=== PATIENT | female | born 1970 | race Caucasian/White ===

== ENCOUNTER 2021-11-24 09:20 | Outpatient (CLI) | payer OTHER, SELFPAY ==
--- NOTE | ~2021-11-24 | MM_ITS ---
EXAMINATION: MM screening [facility] BI w meenu HISTORY: Screening mammogram TECHNIQUE: Craniocaudal and mediolateral oblique 3-D tomosynthesis images were obtained and synthetic 2-D images were generated. CAD analysis was submitted and interpreted. COMPARISON: 03/13/2014, 02/06/2014, 06/07/2012 BREAST PARENCHYMAL COMPOSITION: There are scattered areas of fibroglandular density. FINDINGS: There is no suspicious mass, calcification, or architectural distortion to suggest malignan cy in either breast. There has been no suspicious interval change. IMPRESSION: 1. No mammographic evidence of malignancy. 2. Recommend routine screening mammography in one year. BI-RADS Category 1: Negative Reviewed, dictated and finalized at location A.
== END 2021-11-24 09:21 | disposition home or self-care (01) ==
LOC: ANHIMG 09:22
PROVIDERS: Visit Provider Nurse Practitioner
DX: Z12.31 Encounter for screening mammogram for malignant neoplasm of breast (principal)
CPT/HCPCS: 77063; 77067

== ENCOUNTER 2023-02-10 13:55 | Emergency (ER) | payer OTHER, SELFPAY ==
--- NOTE | ~2023-02-10 | XR_ITS ---
EXAMINATION: XR ankle LT min 3V DATE: 02/10/2023 14:40 INDICATION: Left ankle pain TECHNIQUE: Anteroposterior, lateral, mortise, and additional oblique view of the ankle were obtained. COMPARISON: None. FINDINGS: There is a triangular heterotopic ossification projecting distal to the medial malleolus. T here is medial soft tissue swelling of ankle. The ankle mortise is intact. Posterior and plantar calc aneal enthesophytes are noted. IMPRESSION: 1. Findings suggestive of tiny avulsion fracture of the medial malleolus. Reviewed, dictated and finalized at location A.
[2023-02-10 14:07] VITALS: BP 139/74; PULSE 82; RESP 16; TEMP 37.4; O2SAT 98
--- NOTE | 2023-02-10 14:40 | ED.EXTPRO ---
HPI - Extremity Problem General Chief complaint: Extremity Injury, Lower Stated complaint: Left Ankle/Foot Pain Time Seen by Provider: 02/10/23 14:16 Source: patient and RN notes reviewed Mode of arrival: ambulatory Limitations: no limitations History of Present Illness HPI Narrative: Patient presents today complaining ankle 10 days. Denies injury or trauma. Worse in the mornings and when she tries to walk up stairs. Denies numbness or tingling in the leg or. She has tried naproxen a few times without much relief. Patient has an appointment with her surgical device sales representative next, states they do not do x-rays in that office and she believes she may need some. Related Data Home Medications Medication Instructions Recorded Confirmed No Home Medications 02/10/23 02/10/23 Allergies Allergy/AdvReac Type Severity Reaction Status Date / Time No Known Allergies Allergy Unverified 02/10/23 14:09 Review of Systems Review of Systems: CONSTITUTIONAL: Denies body aches, fever, chills, or sweats. EYES: Denies visual changes, redness, or discharge. ENT: Denies rhinorrhea, congestion, sore throat, or otalgia. CARDIOVASCULAR: Denies chest pain, palpitations, or edema. RESPIRATORY: Denies cough or dyspnea. GASTROINTESTINAL: Denies abdominal pain, nausea, vomiting, or diarrhea. GENITOURINARY: Denies dysuria or hematuria. SKIN: Denies rash, itching, or wounds. MUSCULOSKELETAL: Denies back pain, or myalgia.+ left ankle pain NEUROLOGIC: Denies headache, numbness, tingling, or weakness. PSYCH: Denies depression or anxiety. PMFSH Comments At time of signature, I have reviewed and agree with nursing past medical, surgical, social and family history unless otherwise noted. Please see nursing chart for further information. There is no relevant family history pertinent to the presenting complaint Exam Narrative: GENERAL: Well-appearing, well-nourished, and in no acute distress. HEAD: Normocephalic, atraumatic. EYES: EOMI. No redness or drainage. Conjunctivae normal. ENT: Mucous membranes pink and moist. NECK: Normal AROM. CHEST: No respiratory distress. EXTREMITIES: Left ankle: Tenderness to soft tissue of the medial ankle extending to the medial heel. No tenderness to remainder of the foot. No ecchymosis or erythema noted. There is a scant amount of edema to the medial ankle. Distal sensation intact. Capillary refill normal. Pedal pulse normal. Full range of motion of the ankle. Patient states increased pain with internal rotation. SKIN: Warm, dry, no rash. Capillary refill normal. Normal skin turgor. NEURO: No focal deficits. Alert and oriented x3. Gait steady. PSYCH: Normal affect. No signs of depression or anxiety. Course Course Level of Care: Express Care Visit Vital Signs Vital signs: Vital Signs Temperature 99.3 F 02/10/23 14:07 Pulse Rate 82 02/10/23 14:07 Respiratory Rate 16 02/10/23 14:07 Blood Pressure 139/74 02/10/23 14:07 Pulse Oximetry 98 02/10/23 14:07 Oxygen Delivery Room Air 02/10/23 14:07 Temperature 99.3 F 02/10/23 14:07 Pulse Rate 82 02/10/23 14:07 Respiratory Rate 16 02/10/23 14:07 Blood Pressure 139/74 02/10/23 14:07 Pulse Oximetry 98 02/10/23 14:07 Oxygen Delivery Room Air 02/10/23 14:07 Reviewed. Pt has been instructed to follow up with her PCP regarding her elevated blood pressure today. MDM - Extremity (Nontraumatic) MDM Narrative Medical decision making narrative: X-ray suggestive of tiny avulsion fracture. Wil wrap applied. No prescription medications indicated at this time. Anticipatory guidance given. Differential Diagnosis Differential diagnosis: Likely lower extremity edema and other (Ankle sprain, tarsal tunnel syndrome, osteoarthritis) Imaging Data Radiologist's impression: ITS Impressions Ankle X-Ray 02/10/23 14:42 IMPRESSION: 1. Findings suggestive of tiny avulsion fracture of the medial malleolus.
== END 2023-02-10 15:20 | disposition home or self-care (01) ==
PROVIDERS: Emergency Provider Nurse Practitioner; PCP Nurse Practitioner
DX: S82.892A Other fracture of left lower leg, initial encounter for closed fracture (principal); T14.90XA Injury, unspecified, initial encounter
CPT/HCPCS: 73610; 99214; G0463

== ENCOUNTER 2025-08-01 10:53 | Outpatient (CLI) | payer OTHER, SELFPAY ==
[2025-08-01 11:27] LABS: Hematocrit 37.5 % (37.0-47.0); Hemoglobin 12.6 g/dL (12.0-15.0)
== END 2025-08-01 10:54 | disposition home or self-care (01) ==
LOC: ANHLAB 10:54
PROVIDERS: PCP Nurse Practitioner; Visit Provider Student in an Organized Health Care Education/Training Program
DX: N92.0 Excessive and frequent menstruation with regular cycle (principal); Z01.818 Encounter for other preprocedural examination
CPT/HCPCS: 36415; 85014; 85018

== ENCOUNTER 2025-08-05 02:14 | Day surgery (SDC) | payer OTHER, SELFPAY ==
--- NOTE | 2025-08-01 09:57 | PC.NURSE ---
[facility] has started construction of its new state of the art ER which will open Spring 2026. With this, we anticipate parking may be a challenge for some our surgical patients and families. Parking spaces are limited but are available for all Surgical, obstetrics, and ER patients sharing this lot. If you arrive and find you are having a hard time finding a parking space, please note that we understand the challenges, please drive around the hospital and park near Hospital Entrance 1. When you enter this entrance, you can ask a volunteer to direct or take you back to the surgical waiting area to check in. We appreciate everyone?s understanding of these expected challenges while we build for your future. Report to the Outpatient Waiting Room, entrance under the green pavilion located off [address], at time 1130_ on date 08/05/25_. Planned Procedure Time: 1330.? Time changes happen often and if your time is changed the preop area will call you the afternoon before. - You and your visitor will be asked to self-screen and do not enter if you have any COVID symptoms. Please call surgeon if you need to reschedule. - A mask is optional within the hospital at this time. Patients may have clear liquids (water, carbonated beverages, clear teas, apple juice) until 3 hours prior to surgery with a maximum of 20 ounces. - No food from midnight until time of surgery and no smoking, or chewing tobacco (or any form of nicotine). No chewing gum, candy or mints. Take only the following medications with a SIP of water on the morning of surgery: NONE DO NOT STOP ANY OF YOUR OTHER PRESCRIPTION MEDICATIONS PRIOR TO SURGERY EXCEPT THE FOLLOWING Hold all vitamins and supplements for 3 days per anesthesiologist. Medications to discontinue per physician Date to take last dose Please no make-up, nail serbian, hairspray, perfume, deodorant, or body powder the day of surgery.? No jewelry (including any body piercings) or valuables the day of surgery, leave them at home.? Please take a shower or bath the night before, or the morning of, surgery with an antibacterial soap.? Wear comfortable, loose fitting clothing.? Children are encouraged to wear pajamas. - Jewelry must be removed prior to entering the operating room.? Rings and piercings that are not removed may be cut off. - The hospital will not accept responsibility for valuables.? - Please leave all valuables, including medications, at home the day of surgery. If you are going home after surgery, a licensed coach tour driver must drive you home.? - NO public transportation without another adult if you receive anesthesia. - We recommend that an adult stay with you for 24 hours following discharge. - We also recommend that you do not drive, make important decision, drink alcoholic beverages, or take any drugs that were not prescribed by your health care provider for at least 24 hours after your discharge time. For Pediatric surgeries, we recommend two adults accompany the child home. Follow any additional instructions given to you from your surgeon. Telephone instructions given to __PATIENT_and asked if any additional questions and then verbalized understanding. Patient advised to call surgeon office or pre surgery nurse liaison [phone] if any additional questions.
[2025-08-05] VITALS (7 sets, daily range): BP systolic 134–154; BP diastolic 63–87; PULSE 57–86; RESP 13–18; TEMP 36.6; O2SAT 98–100; BMI 39.2
--- OUTSIDE RECORDS SUMMARY | 2025-08-05 02:17 | XMS_ITS | Encounter Summary ---
Author Organization [facility] Address [address] [place] [address] Care Team Providers Care Urban Design Consultant Name Role Phone Susy Zapata NP Primary Care Provider [phone] Encounter Details Date Type Department Care Team (Late st Contact Info) Description 11/25/2021 MyChart Message Enc [facility] Family Medicine - [place] [address] [facility] [address] [place] [address] [phone] Susy Zapata, FAY [address], [place] [id number] mammogram Social History Tobacco Use Types Packs/Day Years Used Date Smoking Tobacco: Never Smokeless Tobacco: Never PHQ-2 Answer Date Recorded PHQ-2 Score - If the patient scores above 3, please move on to questions 3-9 1 10/08/2021 Comments No Sex and Gender Information Value Date Recorded Sex Assigned at Not on file Legal Sex Female 2:24 PM ASSISTED LIVING ASSISTANT Gender Identity Female 11/09/2021 8:03 AM CDT Sexual Orientation Straight 11/09/2021 8: 03 AM CDT COVID-19 Exposure Response Date Recorded In the last 10 days, have yo u been in contact with someone who was confirmed or suspected to have Coronavirus/COVID-19? No / Unsure 11/09/2021 11:02 PM CDT documented as of this encounter Plan of Treatment Not on file documented as of this encounter Visit Diagnoses Not on filedocumented in this encounter Additional Health Concerns Assessment Noted Time PHQ-9 Depression Total Score: 9 10/08/19 9:34 AM ASSISTED LIVING ASSISTANT documented as of this encounter Care Teams Urban Design Consultant Relationship Specialty Start Date End Date Susy Zapata NP [address] [place] [address] PCP - General NURSE PRACTITIONER 09/03/21 documented as of this encounter
--- OUTSIDE RECORDS SUMMARY | 2025-08-05 02:17 | XMS_ITS | Encounter Summary ---
Author Organization [facility] Address [address] [place] [address] Care Team Providers Care Membership Secretary Name Role Phone Susy Zapata NP Primary Care Provider [phone] Encounter Details Date Type Department Care Team (Late st Contact Info) Description 07/05/2023 MyCPlivot Message Enc [facility] Family Medicine - [place] [address] [facility] [address] [place] [address] [phone] Susy Zapata, FAY [address] [place], [place] [id number] MPV Social History Tobacco Use Types Packs/Day Years Used Date Smoking Tobacco: Never Smokeless Tobacco: Never PHQ-2 Answer Date Recorded Patient Health Questionnaire-2 Score 0 06/14/2023 Comments No Sex and Gender Information Value Date Recorded Sex Assigned at Not on file Legal Sex Female 2:24 PM COATER HELPER Gender Identity Female 11/09/2021 8:03 AM CDT Sexual Orientation Straight 11/09/2021 8: 03 AM CDT documented as of this encounter Plan of Treatment Not on file documented as of this encounter Visit Diagnoses Not on filedocumented in this encounter Additional Health Concerns Assessment Noted Time PHQ-9 Depression Total Score: 5 06/14/20 23 10:25 AM CDT documented as of this encounter Care Teams Membership Secretary Relationship Specialty Start Date End Date Susy Zapata NP [address] [place] [address] [place] [address] PCP - General NURSE PRACTITIONER 09/03/21 documented as of this encounter
--- OUTSIDE RECORDS SUMMARY | 2025-08-05 02:17 | XMS_ITS | Clinical Summary ---
Author Organization [facility] Address [address] [place] [address] Care Team Providers Care Window Tinter Name Role Phone Susy Zapata SOLAR FABRICATION TECHNICIAN Primary Care Provider [phone] Allergies Active Allergy Reactions Criticality Noted Date Comments Hemp Seed Oil Rash Low 06/14/2023 Medications buPROPion XL (WELLBUTRIN XL) 150 MG 24 hr tabletIndicatio ns:Obesity (BMI 30-39.9) Take 1 tablet (150 mg total) by mouth daily. 90 tablet 05/01/2025 Active naltrexone (DEPADE) 50 MG tabletIndicatio ns:Obesity (BMI 30-39.9) Take 0.5 tablets (25 mg total) by mouth daily. 90 tablet 05/01/2025 Active Active Problems Problem Noted Date Diagnosed Date Restless leg syndrome 05/01/2025 Overview (05/01/2025): Notes RLS symptoms at night or when she is sitting still. Denies any pain in her legs currently. Her symptoms are not keeping her up at night. Denies any known AURELIO. Assessment & Plan (05/01/2025 11:31 AM CDT): Will check iron levels. Symptoms are not keeping her up at night. Encourage regular exercise during the day to help reduce RLS symptoms, encouraged good sleep hygiene. Avoid caffeine and alcohol before bed. Can try heat or cold therapy to the legs and also massage. Varicose veins of bilateral lower extremities with other complications 06/14/2023 Overview (05/01/2025): Following with Dr. Barrios Assessment & Plan (05/01/2025 11:33 AM CDT): Continue to follow up with Dr. Barrios as directed. Obesity (BMI 30-39.9) 06/14/2023 Overview (05/01/2025): Is interested in medication to suppress appetite. Her diet is high in carbs and she does report that she snacks often. BMI is currently 39.54. Assessment & Plan (05/01/2025 11:37 AM CDT): Chronic condition with new medications started. With shared decision making we will begin Wellbutrin with naltrexone to make Contrave. Discussed with patient to take and side effects. Encourage following a low fat, low carb diet, encorperate whole foods such as fresh fruits and vegetables and whole grains into your diet, encourage 5 small meals per day. Avoid sugar-sweetened beverages, added sugars, processed meats, refined grains and oils or other processed foods. Encourage to get at least 150 minutes of moderate aerobic activity or 75 minutes of vigorous aerobic activity a week, or a combination of moderate and vigorous activity. Recommend consuming half body weight of protein per day. Increasing water in diet, Work on limited processed food, sugar, and limit carbohydrates. Increase fresh fruit and whole fresh vegetables in diet. Recommend an online foot tracker. Resolved Problems Problem Noted Date Diagnosed Date Resolved Date Anxiety and depression 10/10/202106/14 Encounters Date Type Department Care Team Description 06/18/2025 Scan HEALTH INFO SRVCS Scanned, Doc Med Group Ultrasound (SCAN) 05/20/2025 8:20 AM CDT Allied Health/Nurse Visit [facility] Family Medicine - [place] [address] [place] [address] Susy Zapata NP Lab Draw (/) 05/20/2025 Travel 05/17/2025 Results Follow-Up [facility] Family Medicine - [place] [address] [place] [address] Susy Zapata NP COLOGUARD (Vitrue SCIENCE), FERRITIN, IRON SAT PANEL (IRON,IBC,%SAT), Additional followed-up results: 5 from Last 3 Months Immunizations Immunization Administration Dates Next Due Hepatitis B (Generic: Adult) 10/05/2018,05/02/20 18,03/28/2018 [employer] ([place]) COVID-19 AD26 VACCINE 0.5 ML IM SUSP 12/03/2020 Tdap (Generic) 03/28/2018 Family History Medical History Relation Comments Diabetes Maternal Grandfather Heart Disease Maternal Grandfather Cancer Maternal Grandmother Arthritis Mother Diabetes Mother Hypertension Mother Heart Disease Paternal Aunt Mental Health Son schizophrenia Son Relation Status Comments Maternal Grandfather Maternal Grandmother Mother Paternal Aunt Son Social History Tobacco Use Types Packs/Day Years Used Date Smoking Tobacco: Never Smokeless Tobacco: Never Tobacco Cessation:Counseling Given: No Alcohol Use Standard Drinks/Week Comments Yes 1.7 (1 standard drink = 0.6 oz p ure alcohol) Once a month PHQ-2 Answer Date Recorded Patient Health Questionnaire-2 Score 0 09/12/2024 Comments No Sex and Gender Information Value Date Recorded Sex Assigned at Not on file 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 Gender Identity Female 11/09/2021 8:03 AM CDT Sexual Orientation Straight 11/09/2021 8: 03 AM CDT Last Filed Vital Signs Vital Sign Reading Time Taken Comments Blood Pressure 124/72 05/01/2025 10:45 AM CDT Pulse 79 05/01/2025 10:45 AM CDT Temperature 36.3 C (97.3 F) 05/01/2025 10:45 AM CDT Respiratory Rate 18 05/01/2025 10:4 5 AM CDT Oxygen Saturation 98% 05/01/2025 10: 45 AM CDT Inhaled Oxygen Concentration - - Weight 107.8 kg (237 lb 9.6 oz) 025 10:45 AM CDT Height 165.1 cm (5' 5) 05/01/2025 10:4 5 AM CDT Body Mass Index 39.54 05/01/2025 10:45 AM CDT Plan of Treatment Health Maintenance Due Date Last Done Comments Cervical Cancer Screening Pap Smear (Age 30 to 64) Every 3 Years 1971 Cervical Cancer Screening Pap with HPV Testing (Age 30 to 64) Every 5 Years 12/14/2001 Pneumococcal Vaccine: 50+ Years (1 of 1 - PCV) 12/14/2021 Mammogram Screening 11/25/2023 11/24/2021, 8 COVID-19 Vaccine (3 - season) 2025 08/16/2021, 12/03/2020 Influenza Adult (#1) 2025 Annual Physical 05/01/2026 05/01/2025, 05/28, 10/08/2021 Cervical Cancer Screening with HPV 05/01/2026 Postponed from 12/14/2001 (Going to Outside Clinic) DTaP, Tdap and Td Vaccines (2 - Td or Tdap) 03/28/2028 03/28/2018 Colorectal Cancer Screening FIT-DNA (3 Years) 05/11/2028 05/11/2025, 05/11/2025, 10/19/2021, Additional history exists Hepatitis B Vaccines Completed 10/05/2018, 05/02/2018, 03/28/2018 Hepatitis C Completed 11/10/2021 Zoster Vaccines Completed 07/22/2023, 04/14/2023 PHQ-2 (Physician Louin) Completed 09/12/2024 Hepatitis A Vaccines Aged Out No long er eligible based on patient's age to complete this topic Meningococcal B Vaccine Aged Out No l onger eligible based on patient's age to complete this topic Meningococcal Vaccine Aged Out No ashish alfredito eligible based on patient's age to complete this topic RSV Immunizations Under 20 Months Aged Out No longer eligible based on patient's age to complete this topic Procedures Procedure Name Priority Date/Time Associated Diagnosis Comments ULTRASOUND GENERIC (SCAN ORDER) 06/18/2025 COLLECTION VENOUS BLOOD VENIPUNCTURE Routine 05/20/2025 8:52 AM CDT Screening for thyroid disorder GENERAL HEALTH PANEL Routine 05/20/2025 8:52 AM CDT Restless leg syndrome Screening for endocrine, metabolic and immunity disorder COMPREHENSIVE METABOLIC PANEL Routine 05/20/2025 8:52 AM CDT Impaired fasting glucose Screening for endocrine, metabolic and immunity disorder LIPID PANEL Routine 05/20/2025 8:52 AM CDT Screening for hyperlipidemia TSH W/REFLEX Routine 05/20/2025 8:52 AM CDT Screening for thyroid disorder HEMOGLOBIN GLYCOSYLATED A1C Routine 05/20/2025 8:52 AM CDT Impaired fasting glucose IRON Routine 05/20/2025 8:52 AM CDT Restless leg syndrome FERRITIN Routine 05/20/2025 8:52 AM CDT Restless leg syndrome COLOGUARD (EXACT SCIENCE) Routine 05/11/2025 6:45 PM CDT Screening for colon cancer MAMMOGRAM GENERIC (SCAN ORDER) 11/24/2021 HEPATITIS C ANTIBODY Routine 11/10/2021 7:52 AM CDT Need for hepatitis C screening test from Last 3 Months or Most Recently Relevant to Health Maintenance Results * ULTRASOUND GENERIC (SCAN ORDER) (06/18/2025) Anatomical Region Laterality Modality Other 06/18/2025 us Doc Med Group Scanned SCANNING Final Resu lt * TSH W/REFLEX (05/20/2025 8:52 AM CDT) TSH 1.880 0.358 - 3.740 uIU/ML 05/20/2025 4:42 PM CDT [facility] [place] 05/20/2025 8:52 AM CDT us Susy Zapata SOLAR FABRICATION TECHNICIAN LABORATORY Final Res ult [facility] [address] [place] [address], [place] [phone] * HEMOGLOBIN, GLYCOSYLATED (05/20/2025 8:52 AM CDT) HGB A1C 5.1 4.5 - 6.2 % 05/20/2025 3:40 PM CDT [facility] ESTIMATED AVG GLUCOSE 100 74 - 106 MG/DL 05/20/2025 3:40 PM CDT [facility] 05/20/2025 8:52 AM CDT Susy Zapata SOLAR FABRICATION TECHNICIAN LABORATORY Final Res ult Performing Organization Address [facility] de Phone Number [address] [address], [place] [phone] * (ABNORMAL) IRON SAT PANEL (IRON,IBC,%SAT) (05/20/2025 8:52 AM CDT) IRON 35(L) 50 - 170 MCG/DL 05/20/2025 4:42 PM CDT [facility] IRON BINDING CAPACITY 404 250 - 450 MCG/DL 05/20/2025 4:42 PM CDT [facility] IRON SATURATION 9 % 4:42 PM CDT [facility] Comment:REFERENCE RANGE NOT ESTABLISHED 05/20/2025 8:52 AM CDT us Susy Zapata SOLAR FABRICATION TECHNICIAN LABORATORY Final Res ult Performing Organization Address [facility] de Phone Number [facility] [address] [place] [address], [place] [phone] * (ABNORMAL) COMPREHENSIVE METABOLIC PANEL (05/20/2025 8:52 AM CDT) [facility] SODIUM S/P/B 140 136 - 145 MMOL/L 05/20/2025 4:42 PM CDT [facility] POTASSIUM S/P/B 4.8 3.5 - 5.1 MMOL/L 05/20/2025 4:42 PM CDT [facility] CHLORIDE S/P/B 106 98 - 107 MMOL/L 05/20/2025 4:42 PM CDT [facility] CO2 26.3 21 - 32 MMOL/L 05/20/2025 4:42 PM CDT [facility] GLUCOSE 94 70 - 99 MG/DL 05/20/2025 4:42 PM T [facility] BUN 18 7 - 18 MG/DL 05/20/2025 4:42 PM T [facility] CREATININE S/P/B 0.79 0.55 - 1.02 MG/DL 05/20/2025 4:42 PM CDT [facility] CALCIUM S/P/B 8.9 8.4 - 10.5 MG/DL 05/20/2025 4:42 PM CDT [facility] BILIRUBIN TOTAL S/P/B 0.3 0.2 - 1.0 MG/DL 05/20/2025 4:42 PM T [facility] ALKALINE PHOSPHATASE S/P/B 55 41 - 108 U/L 05/20/2025 4:42 PM CDT [facility] AST 11(L) 15 - 37 U/L 05/20/2025 5:05 PM CDT [facility] ALT 16 14 - 59 U/L 05/20/2025 4:42 PM CDT [facility] TOTAL PROTEIN S/P/B 7.8 6.4 - 8.2 G/DL 05/20/2025 4:42 PM T [facility] ALBUMIN S/P/B 3.2(L) 3.4 - 5.0 G/DL 05/20/2025 4:42 PM CDT [facility] ANION GAP 7.7 5 - 15 MMOL/L 05/20/2025 4:42 PM CDT [facility] Comment:REFERENCE RANGE NOT ESTABLISHED OSMOLALITY (CALC) 292 MOSM/KG 025 4:42 PM CDT [facility] Comment:REFERENCE RANGE NOT ESTABLISHED GFR ESTIMATE 89(L) >90 ML/MIN/1. 73 M2 05/20/2025 4:42 PM CDT [facility] GFR NOTES GFR REFERENCE S: 05/20/2025 4:42 PM CDT [facility] Comment: THE ESTIMATED GFR IS CALCULATED USING THE 2020 CKD-EPI EQUATION. THE FOLLOWING CATEGORIES FOR GRADING RENAL FUNCTION ARE RECOMMENDED BY THE INTERNATIONAL SOCIETY OF NEPHROLOGY (KDIGO 2012 CLINICAL PRACTICE GUIDELINE). G1,NORMAL OR HIGH: >89 ml/min/1.73 m2 G2,MILDLY DECREASED: 60-89 ml/min/1.73 m2 G3A,MILDLY TO MODERATELY DECREASED: 45-59 ml/min/1.73 m2 G3B,MODERATELY TO SEVERELY DECREASED: 30-44 ml/min/1.73 m2 G4,SEVERELY DECREASED: 15-29 ml/min/1.73 m2 G5,KIDNEY FAILURE: <15 ml/min/1.73 m2 05/20/2025 8:52 AM CDT us Susy Zapata NP LABORATORY Final Res ult [facility] [address] [place] [address], * (ABNORMAL) LIPID PANEL (05/20/2025 8:52 AM CDT) CHOLESTEROL 196 <200 MG/DL 05/20/2025 4:42 PM CDT [facility] TRIGLYCERIDES 58 <150 MG/DL 05/20/2025 4:42 PM CDT [facility] HDL 62 >40 MG/DL 05/20/2025 4:42 PM CDT [facility] LDL-C 122(H) <100 MG/DL 05/20/2025 4:42 PM CDT [facility] VLDL CALCULATION 12 5 - 28 MG/DL 05/20/2025 4:42 PM CDT [facility] CHOL/HDL RATIO 3.2 0.0 - 4.0 05/20/2025 4:42 PM CDT [facility] LDL/HDL 2.0 0.41 - 2.13 05/20/2025 4:42 PM CDT [facility] NON HDL CHOLESTEROL 134 <140 MG/DL 05/20/2025 4:42 PM CDT [facility] 05/20/2025 8:52 AM CDT us Susy Zapata SOLAR FABRICATION TECHNICIAN LABORATORY Final Res ult [facility] [address] [place] [address], * (ABNORMAL) CBC W/DIFF AUTOMATED (05/20/2025 8:52 AM CDT) WBC 4.95 4.00 - 10.80 x10'3/uL 05/20/2025 2:37 PM CDT [facility] RBC 3.93(L) 4.10 - 5.40 x10'6/uL 05/20/2025 2:37 PM CDT [facility] HGB 10.6(L) 12.0 - 16.0 G/DL 05/20/2025 2:37 PM CDT [facility] HCT 32.9(L) 36.0 - 47.0 % 05/20/2025 2:37 PM CDT [facility] MCV 83.7 78.0 - 100.0 FL 05/20/2025 2:37 PM CDT [facility] MCH 27.0 27.0 - 31.0 PG 05/20/2025 2:37 PM CDT [facility] MCHC 32.2(L) 33.0 - 36.0 G/DL 05/20/2025 2:37 PM CDT [facility] RDW 17.0(H) 11.5 - 14.5 % 05/20/2025 2:37 PM CDT [facility] PLT 327 150 - 350 x10'3/uL 05/20/2025 2:37 PM CDT [facility] MPV 11.6(H) 7.4 - 10.4 FL 05/20/2025 2:37 PM CDT [facility] DIFFERENTIAL TYPE AUTOMATED DIFFERENTIAL 05/20/2025 2:37 PM CDT [facility] NEUTROPHILS % 60.4 % 05/20/2025 2:37 PM CDT [facility] LYMPHOCYTES % 26.7 % 05/20/2025 2:37 PM CDT [facility] MONOCYTES % 9.3 % 05/20/2025 2:37 PM CDT [facility] EOSINOPHILS % 2.8 % 05/20/2025 2:37 PM CDT [facility] BASOPHILS % 0.6 % 05/20/2025 2:37 PM CDT [facility] IMMATURE GRANS % 0.2 % 05/20/2025 2:37 PM CDT [facility] ABS. NEUTROPHILS 2.99 1.60 - 8.30 x10'3/uL 05/20/2025 2:37 PM CDT [facility] ABS. LYMPHOCYTES 1.32 0.80 - 4.70 x10'3/uL 05/20/2025 2:37 PM CDT [facility] ABS. MONOCYTES 0.46 0.00 - 1.50 x10'3/uL 05/20/2025 2:37 PM CDT [facility] ABS. EOSINOPHILS 0.14 0.00 - 0.40 x10'3/uL 05/20/2025 2:37 PM CDT [facility] ABS. BASOPHILS 0.03 0.00 - 0.20 x10'3/uL 05/20/2025 2:37 PM CDT [facility] ABS. IMMATURE GRANULOCYTES 0.01 0.00 - 0.03 x10'3/uL 05/20/2025 2:37 PM CDT [facility] 05/20/2025 8:52 AM CDT Susy Zapata SOLAR FABRICATION TECHNICIAN LABORATORY Final Res ult Performing Organization Address [facility] Co de Phone Number [facility] [address] [place] [phone], * (ABNORMAL) FERRITIN (05/20/2025 8:52 AM CDT) Pathologist [facility] FERRITIN 5.0(L) 8 - 252 NG/ML 05/20/2025 4:42 PM CDT [facility] 05/20/2025 8:52 AM CDT Susy Zapata SOLAR FABRICATION TECHNICIAN LABORATORY Final Res ult Performing Organization Address [facility] Co de Phone Number [id number] [place] [address], [place] [phone] * COLOGUARD (EXACT SCIENCE) (05/11/2025 6:45 PM CDT) Pathologist [facility] COLOGUARD RESULT Negative Negative [employer] (CLIA #:[id number]) Comment: The Cologuard (TM) test was performed on this specimen. NEGATIVE TEST RESULT. A negative Cologuard result indicates a low likelihood that a colorectal cancer (CRC) or advanced adenoma (adenomatous polyps with more advanced pre-malignant features) is present. The chance that a person with a negative Cologuard test has a colorectal cancer is less than 1 in 1500 (negative predictive value >99.9%) or has an advanced adenoma is less than 5.3% (negative predictive value 94.7%). These data are based on a prospective cross-sectional study of 10,000 individuals at average risk for colorectal cancer who were screened with both Cologuard and colonoscopy. (Janette Woo et al, N Engl J Med 2014;370(14):1286- 1297) The normal value (reference range) for this assay is negative. COLOGUARD RE-SCREENING RECOMMENDATION: Periodic colorectal cancer screening is an important part of preventive healthcare for asymptomatic individuals at average risk for colorectal cancer. Following a negative Cologuard result, the [place] [employer] Society and U.S. Multi-Society Task Force screening guidelines recommend a Cologuard re-screening interval of 3 years. References: [place] [employer] Guideline for Colorectal Cancer Screening: https://www.cancer.org/cancer/aojvl-mohltz-nbyzwq/vjcldomhx-jllrsgpnn-xkshkpb/ac s-rec ommendations.html.; Otf DK, Denisse FONTENOT, Samaria CastleK, Colorectal Cancer Screening: Recommendations for Physicians and Patients from the U.S. Multi-Society Task Force on Colorectal Cancer Screening , Am J Gastroenterology 2017; 112:4096-1291. TEST DESCRIPTION: Composite algorithmic analysis of stool DNA-biomarkers with hemoglobin immunoassay. Quantitative values of individual biomarkers are not reportable and are not associated with individual biomarker result reference ranges. Cologuard is intended for colorectal cancer screening of adults of either sex, 45 years or older, who are at average-risk for colorectal cancer (CRC). Cologuard has been approved for use by the U.S. FDA. The performance of Cologuard was established in a cross sectional study of average-risk adults aged 50-84. Cologuard performance in patients ages 45 to 49 years was estimated by sub-group analysis of near-age groups. Colonoscopies performed for a positive result may find as the most clinically significant lesion: colorectal cancer [4.0%], advanced adenoma (including sessile serrated polyps greater than or equal to 1cm diameter) [20%] or non- advanced adenoma [31%]; or no colorectal neoplasia [45%]. These estimates are derived from a prospective cross-sectional screening study of 10,000 individuals at average risk for colorectal cancer who were screened with both Cologuard and colonoscopy. (Janette Boo al, N Engl J Med 2014;370(14):1108-0313.) Cologuard may produce a false negative or false positive result (no colorectal cancer or precancerous polyp present at colonoscopy follow up). A negative Cologuard test result does not guarantee the absence of CRC or advanced adenoma (pre-cancer). The current Cologuard screening interval is every 3 years. ([place] [employer] and U.S. Multi-Society Task Force). Cologuard performance data in a 10,000 patient pivotal study using colonoscopy as the reference method can be accessed at the following location: [email or web address]/results. Additional description of the Cologuard test process, warnings and precautions can be found at [email or web address]. STOOL STOOL SPECIMEN / Unknown 05/11/2025 6:45 PM CDT 05/13/2025 10:06 AM CDT Susy Zapata NP BODY FLUIDS AND STOOLS OR DERABLES Final Result [employer], [facility] [address] [place] [phone], [employer] (CLIA #:[id number]) [address] [phone] * MAMMOGRAM GENERIC (11/24/2021) Anatomical Region Laterality Modality Other 11/24/2021 Narrative 11/24/2021 Ordered by an unspecified provider. us Documents Scanned SCANNING Final Result * HEPATITIS C ANTIBODY (11/10/2021 7:52 AM CDT) HEPATITIS C AB NON-REACTI VE NON-REACT KEILY 11/10/2021 7:01 PM CDT [facility] Comment: ANTIBODIES TO HCV NOT DETECTED. DOES NOT EXCLUDE THE POSSIBILITY OF EXPOSURE TO HCV. 11/10/2021 7:52 AM CDT Susy Zapata NP LABORATORY Final Res ult [facility] [address] [place] [address], [id number] from Last 3 Months or Most Recently Relevant to Health Maintenance Insurance [place] [address] Care Teams Window Tinter Relationship Specialty Start Date End Date Susy Zapata NP [address] [place] [address] PCP - General NURSE PRACTITIONER 09/03/21
--- OUTSIDE RECORDS SUMMARY | 2025-08-05 02:17 | XMS_ITS | Encounter Summary ---
Author Organization [facility] Address [address] [place] [address] Care Team Providers Care Electrical Contacts Adjuster Name Role Phone Susy Zapata FIRE WATCHER Primary Care Provider [phone] Encounter Details Date Type Department Care Team (Late st Contact Info) Description 06/16/2023 mYwindow Message Enc [facility] Family Medicine - [place] [address] [place] [address] [facility] Social History Tobacco Use Types Packs/Day Years Used Date Smoking Tobacco: Never Smokeless Tobacco: Never PHQ-2 Answer Date Recorded Patient Health Questionnaire-2 Score 0 06/14/2023 Comments No Sex and Gender Information Value Date Recorded Sex Assigned at Not on file 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
--- NOTE | 2025-08-05 10:34 | PM.IMHP2 ---
H&P: HPI History of Present Illness Date/Time: 08/05/25 10:34 Chief Complaint: AUB thickened endometrium on US Narrative: 54 yo female who presents for hysteroscopy D&C for AUB and thickened endometrium. She had endometrial cells noted on her pap (she does think she was at the end of her cycle on the day we collected her pap) but she has been having AUB. [employer] US did show fibroid uterus with slightly thickened endometrium. She reports her cycles are starting to be irregular (q4-6wk), and very heavy; she reports heavy bleeding on days 2-3; needing overnight pads throughout the day (only needed normal pads before). She reports passing large clots. She reports her iron levels are very low. Review of Systems Cardiovascular: Cardiovascular: Denies chest pain, Denies leg edema, Denies palpitations, Denies dyspnea and Denies dyspnea on exertion Respiratory: Respiratory: Denies cough, Denies dyspnea and Denies dyspnea on exertion Gastrointestinal: Gastrointestinal: Denies abdominal pain, Denies constipation, Denies diarrhea, Denies nausea and Denies vomiting Genitourinary: Genitourinary: Denies hematuria, Denies urinary frequency, Denies dysuria, Denies pelvic pain, Denies urinary incontinence and Denies vaginal discharge Neurologic: Reports system reviewed and no additional complaints, except as documented Psychiatric: Psychiatric: Reports no additional psychiatric complaints Endocrine: Endocrine: Denies palpitations PMFSH Past Medical History Medical History Venous vascular malformations [place] Surgical History Surgical History H/O thumb surgery Delivery by section H/O vascular surgery vein Social History Social History (Updated 07/10/25 @ 09:44 by Zehra Colin CMA) Smoking status: Never smoker Alcohol intake: current Drinks per week: 2 Alcohol use details: WINE Substance use: never Substance use type: does not use Lack of Transportation: No Lack of Food: Never True Current Housing: I Have Housing Concerned About Future Housing: No Difficulty Paying Gas/Electric Bills: No Difficulty Paying for Meds: No Currently Unemployed: No Education: High School Diploma/GED Difficulty w/ Childcare or Family Care: No Living arrangements: alone Occupation/Education: occupation Gender identity (if verbalized by the patient): Female Sexual Orientation (if Verbalized by the Patient): Straight or Heterosexual Meds Home Medications and Allergies Home Medications ?Medication ?Instructions ?Recorded ?Confirmed ?Type ferrous sulfate 325 mg (65 mg 325 mg PO DAILY 08/01/25 08/01/25 History iron) tablet (Feosol) Allergies Allergy/AdvReac Type Severity Reaction Status Date / Time No Known Allergies Allergy Verified 08/01/25 09:46 Exam Const: General: no acute distress Eyes: EOM: EOMs intact bilaterally Neck: Neck: supple Thyroid: thyroid normal Chest: Breast/axilla inspection: normal inspection of the breasts Breast/axilla palpation: normal palpation of the breasts, normal palpation of the axillae and no axillary lymphadenopathy Resp: Effort & Inspection: normal respiratory effort Auscultation: clear to auscultation bilaterally Cardio: Rate: regular rate Rhythm: regular rhythm GI: Inspection: non-distended GI Palp: Yes Soft to palpation, No Tenderness to palpation present (GI) and No Guarding due to palpation present (GI) Auscultation: normal bowel sounds : General: No bladder normal to palpation External Female Exam: normal external appearance Speculum Exam - Vagina: normal vaginal discharge and No vaginal bleeding Speculum Exam - Cervix: nontender Bimanual exam- vagina & uterus: No bladder normal to palpation and No Cervical tenderness present OB/external & speculum: No vaginal bleeding Skin: General skin exam: normal color and no rashes or lesions noted Neuro: Cognition (Neuro): normal cognition Speech: normal speech Extrem: General: normal to inspection and no edema Psych: Mental Status: mental status grossly normal Affect: normal affect Assessment and Plan Assessment and plan (1) Abnormal uterine bleeding (AUB): Code(s): N93.9 - Abnormal uterine and vaginal bleeding, unspecified Status: Acute Assessment and Plan: 54 yo who presents for hysteroscopy, D&C, ECC she had had prolonged AUB she was also noted to have endometrial cells on pap smear risks, benefits, alternatives discussed will proceed with above procedre (2) Endometrial thickening on ultrasound: Code(s): R93.89 - Abnormal findings on diagnostic imaging of other specified body structures Status: Acute
[2025-08-05] MEDS: LACTATED RINGERS 1,000 ML 30 ML IV CONT (11:05)
[2025-08-05] MEDS: ACETAMINOPHEN 500 MG TABLET 1000 MG PO (11:10)
--- NOTE | 2025-08-05 12:12 | WPDHPUPDATE1 ---
History and Physical Update Update Date/Time: 08/05/25 12:12 History and Physical has been reviewed, including an updated exam of the patient. There are NO changes in the patient's condition. Risks, benefits, and alternatives have been discussed and questions answered. Patient agrees to proceed with procedure. will plan for hysteroscopy, D&C, ECC
[2025-08-05 12:13] LABS: BEDSIDEPREGUCG Negative (Negative)
--- NOTE | 2025-08-05 12:31 | P.PNAN_ITS ---
Anes - Initial Pre Proc Eval Procedure: Operation Date: 08/05/25 12:45 Proposed Procedures p Hysteroscopy Dilation and Curettage with Endocervical Curettage - Hermann Edmonds MD Date/Time: 08/05/25 12:31 Surgeon: Hermann Edmonds MD Pre Op Diagnosis: abnormal uterine bleeding Patient Data Age: 54 Gender: F Height: 1.65 m Weight: 107 kg Last Vital Signs Temp 36.6 C 08/05/25 10:45 Pulse 79 08/05/25 10:45 Resp 16 08/05/25 10:45 BP 139/82 08/05/25 10:45 Pulse Ox 98 08/05/25 10:45 O2 Del Method Room Air 08/05/25 10:45 Allergies Allergy/AdvReac Type Severity Reaction Status Date / Time No Known Allergies Allergy Verified 08/05/25 10:53 Home Medications ?Medication ?Instructions ?Recorded ?Confirmed ?Type ferrous sulfate 325 mg (65 mg 325 mg PO DAILY 08/01/25 08/05/25 History iron) tablet (Feosol) Laboratory Tests 08/05/25 10:50 POC Urine HCG, Qual Negative (Negative) Patient hx anesthesia problems: none Family hx anesthesia problems: none Results Review: All pre-operative results and documents have been reviewed as part of the pre- operative evaluation. [facility] Past Medical History Medical History Venous vascular malformations [place] Surgical History Surgical History H/O thumb surgery Delivery by section H/O vascular surgery vein Social History Social History (Updated 07/10/25 @ 09:44 by Zehra Colin CMA) Smoking status: Never smoker Alcohol intake: current Drinks per week: 2 Alcohol use details: WINE Substance use: never Substance use type: does not use Lack of Transportation: No Lack of Food: Never True Current Housing: I Have Housing Concerned About Future Housing: No Difficulty Paying Gas/Electric Bills: No Difficulty Paying for Meds: No Currently Unemployed: No Education: High School Diploma/GED Difficulty w/ Childcare or Family Care: No Living arrangements: alone Occupation/Education: occupation Gender identity (if verbalized by the patient): Female Sexual Orientation (if Verbalized by the Patient): Straight or Heterosexual Anes - Eval Final PreProcedure Day of Procedure 08/05/25 12:31 Patient weight: obese Heart: regular rate and rhythm Lungs: clear to auscultation Airway: Mallampati scale class II Neurological: alert and oriented Last oral intake: >/= 8 hours ASA classification: II Emergent: no Anesthetic plan: proceed Anesthesia type and monitoring: general GIVS and standard monitoring Results Review: All pre-operative results and documents have been reviewed as part of the pre- operative evaluation. Informed Consent: The patient's anesthetic plan and its attendant risks and benefits were discussed with the patient/family/POA. Questions were solicited and answers provided to the satisfaction of the patient/family/POA.
--- NOTE | 2025-08-05 13:16 | S_PTH ---
PATIENT: Vernell Guan LOC: [facility] U#:[id number] AGE/SX: 54/F ROOM: RE08/05/[address]: Hermann Edmonds MD : 1970 BED: DIS: 08/05/2025 SPEC #: [id number] RECD: 08/05/25 14:31 STATUS: NALDO REQ #: [id number] MAGDIEL: 08/05/25 13:[address]: Hermann Edmonds DEPT: [facility] Surgical RECD BY: Mily Lin MLT, ([facility]) ENTERED: 08/05/25 14:32 SP TYPE: Surgical OTHR DR: Susy Zapata, ALARM SIGNAL OPERATOR Tissues: A - Endocervical Curettings Procedures: Hematoxylin and Eosin Stain Gross and Microscopic Level 4
--- NOTE | 2025-08-05 13:28 | W.PM.PROC2 ---
Procedure Note - Detailed Date of Procedure 08/05/25 Pre-op Diagnosis abnormal uterine bleeding glandular cells on pap smear Post-op Diagnosis Same Procedure Performed Endocervical curettage hysteroscopy dilation & curettage Surgeon Hermann Edmonds MD Anesthesia General Indications abnormal uterine bleeding glandular cells on pap smear Findings normal appearing intrauterine cavity. Normal tubal ostia bilaterally Description of Procedure Vernell Guan presents for th above procedure. She was counseled as to the indications, risks, benefits, and alternatives to surgery, with the risks including bleeding, infection, damage to surrounding organs, VTE, and complications of anesthesia. Her verbal and written consent was obtained. PROCEDURE: The patient was taken to the OR and general anesthesia induced. She was prepped and draped in Chirag stirrups with support of the back and bilateral lower extremities. I/O catheterization performed of the bladder. The above findings were noted. A single tooth tenaculum was placed on the anterior lip of the cervix. Endocervical curettage was performed and tissue was placed on telfa. The sample was placed in formalin and sent for pathology. The cervix was dilated with sequential Yelitza dilators. Hysteroscopy, using a normal saline medium, was performed and showed the above findings. Sharp uterine curettage was then performed and tissue placed on Telfa. The tenaculum was removed and hemostasis was observed. The patient tolerated the procedure well. Sponge, lap, and needle counts were correct. The patient had SCD's on throughout the case for VTE prophylaxis. The patient was taken to the recovery room in stable condition. Estimated Blood Loss 5 Drains No Packing No Pathology Yes (endometrial curettings, endocervical curetting ) Complications No immediate complications Condition Stable Disposition PACU [facility] Billing Surgery - Charge Forward: Surgery Billing
[2025-08-05] MEDS: oxyCODONE HCL (*CRX) 5 MG TAB IR PO (14:49)
== END 2025-08-05 15:30 | disposition home or self-care (01) ==
PROVIDERS: Anesthesiology; PCP Nurse Practitioner; Visit Provider Student in an Organized Health Care Education/Training Program
PROC: 0U5B8ZZ Destruction of Endometrium, Via Natural or Artificial Opening Endoscopic (ICD-10-PCS; CPT 58563; principal; 2025-08-05 12:45)
DX: R93.89 Abnormal findings on diagnostic imaging of other specified body structures (principal); N85.8 Other specified noninflammatory disorders of uterus; D64.9 Anemia, unspecified; E66.9 Obesity, unspecified; Z68.39 Body mass index [BMI] 39.0-39.9, adult; Z98.890 Other specified postprocedural states
CPT/HCPCS: 58558; 88305; A9270; J1596; J2003; J2250; J2405; J2704; J3010; J7120